=== PATIENT | female | born 1995 | race Two or more races ===

== ENCOUNTER 2017-05-20 19:41 | Emergency (ER) | payer BC ==
--- NOTE | ~2017-05-20 | ER ---
PATIENT'S NAME: MAYELA [facility] AGE: 21 Y [address] ROOM: [place] [id number] LOCATION: [facility] ADMIT DATE: 05/20/2017 ER/Outpatient Report DISCHARGE DATE: 05/20/2017 FAMILY PHYSICIAN: Michel Carolina MD ATTENDING PHYSICIAN: Siva Garcia Time of Patient Arrival: 1941 hours. Time of Patient Evaluation: 1956 hours. CHIEF COMPLAINT: A 6-7 weeks with vaginal spotting. HISTORY OF PRESENT ILLNESS: This is a 21-year-old female who presents to the ER. She states she is approximately 6-7 weeks and today, she noticed some discharge dark brown in nature and she has had a little bit of cramping. She states she has seen Dr. Carolina for this . He did do an ultrasound and she was prescribed some suppository, progesterone, that she does take at night. She states the coding of the progesterone is dark yellow and so she is not for sure if the discharge is from that or if she is bleeding. She denies any abnormal vaginal odor, no recent intercourse. No other problems at this time. ALLERGIES: NO KNOWN ALLERGIES. MEDICATIONS: Please see medication list in nurse's notes. PAST MEDICAL HISTORY: Negative. PAST SURGERIES: None. SOCIAL HISTORY: Denies smoking, drug, or alcohol use. REVIEW OF SYSTEMS: All systems were reviewed and were negative with the exception of those discussed in the HPI. PHYSICAL EXAMINATION: VITAL SIGNS: Height 5 feet 2 inches stated, weight 76.3 kg taken, blood pressure is 126/65, pulse 85, respirations 16, temperature 99.2 degrees tympanically, and saturations 96% on room air. [place] Coma Score is 15. PATIENT'S NAME: MAYELA [facility] AGE: 21 Y [address] ROOM: [place] [address] LOCATION: [facility] ADMIT DATE: 05/20/2017 ER/Outpatient Report DISCHARGE DATE: 05/20/2017 FAMILY PHYSICIAN: Michel Carolina MD ATTENDING PHYSICIAN: Siva Garcia GENERAL: Alert, calm, well-developed, 21-year-old, in no acute distress. LUNGS: Clear to auscultation bilaterally. No wheezes or crackles. Normal respiratory effort. HEART: Regular rate and rhythm. ABDOMEN: Soft, it is nontender. She has good bowel sounds throughout. No masses were palpated. : She has a scant amount of dark brown drainage. No active bleeding. Her cervical os is closed. No vaginal lesions noted. EXTREMITIES: No clubbing, cyanosis, or edema. She has full range of motion of all limbs. LABORATORY DATA: CBC: White count is 13.0, hemoglobin is 13.7, ANC is 9.0. Her blood type per the patient is O positive. HCG quant is 26,100. Urinalysis is negative for any infection. IMPRESSION: Intrauterine with vaginal spotting. ASSESSMENT AND PLAN: I did give the patient reassurance. I advised her to do pelvic rest, monitor her symptoms, continue to push fluids. I will like her to call her primary care physician tomorrow to notify them of what is going on, so that they can make a followup appointment. The patient understands and agrees with care. AMAYA HAMILTON PA-C FOR MD KAYDEN MOSES/abraham /[id number] d: t: 05/26/17 1240, OUTPATIENT REPORT
[2017-05-20 20:32] LABS: BILIRUBIN URINE NEGATIVE (NEGATIVE); BLOOD URINE 150 /UL (NEGATIVE); GLUCOSE URINE NEGATIVE (NEGATIVE); KETONE URINE NEGATIVE (NEGATIVE); LEUKOCYTES URINE 25 /UL (NEGATIVE); NITRITE URINE NEGATIVE (NEGATIVE); PROTEIN URINE NEGATIVE (NEGATIVE); UROBILINOGEN URINE 1 mg/dL (NORMAL)
[2017-05-20 20:33] LABS: COLOR URINE YELLOW (YELLOW); TURBIDITY URINE 4+ (CLEAR)
[2017-05-20 20:51] LABS: BASOPHIL # 0.1 K/uL (0.0-0.2); BASOPHIL % 0.5 %; EOSINOPHIL # 0.1 K/uL (0.0-0.5); EOSINOPHIL % 0.5 %; HEMATOCRIT 40.1 % (33.0-46.0); HEMOGLOBIN 13.7 g/dL (11.0-15.0); IMMATURE GRANULOCYTE % 0.3 %; LYMPHOCYTE # 3.1 K/uL (0.8-4.0); LYMPHOCYTE % 23.8 %; MCH 31.1 pg (27.0-34.0); MCHC 34.2 gm/dL (32.0-36.5); MCV 91.1 fl (83.0-98.0); MONOCYTE # 0.7 K/uL (0.0-1.0); MONOCYTE % 5.7 %; MPV 10.4 fl (9.4-12.4); NEUTROPHIL % 69.2 %; NRBC % 0 /100WBC (0-0.00); PLATELET COUNT 282 K/uL (150-450); RDW-CV 12.7 % (11.9-14.6)
[2017-05-20 21:02] LABS: AMORPHOUS URINE 3+ (NEGATIVE)
[2017-05-20 21:04] LABS: BACTERIA URINE NEGATIVE (NEGATIVE); WBC URINE 0-2 #/HPF (NEGATIVE)
== END 2017-05-20 21:40 | disposition disaster alternative care site (69) ==
LOC: GMED 19:41
PROVIDERS: Emergency Medicine
DX: O26.851 Spotting complicating pregnancy, first trimester (principal); Z3A.01 Less than 8 weeks gestation of pregnancy; Z79.899 Other long term (current) drug therapy; Z79.3 Long term (current) use of hormonal contraceptives